=== PATIENT | female | born 2000 | race African-American/Black ===

== ENCOUNTER 2024-10-07 14:19 | Emergency (ER) | payer OTHER ==
[~2024-10-07] VITALS: Ht 167.6 cm; Wt 86.4 kg
[2024-10-07 14:20] VITALS: TEMP 98.4
[2024-10-07] MEDS ORDERED: EPIN0.3P3 IM (14:52)
[2024-10-07] MEDS ORDERED: PRED-554 PO (14:52)
[2024-10-07] MEDS ORDERED: DIPH50CA37 PO (14:52)
[2024-10-07] MEDS: PredniSONE 20 MG TABLET PO ONE (15:00)
[2024-10-07] MEDS: DiphenhydrAMINE HCL 25 MG CAPSULE PO ONE (15:00)
[2024-10-07] MEDS ORDERED: TRIA15CR49 TP (15:07)
[2024-10-07] MEDS: TRIAMCINOLONE 0.1% 15 GM CREAM TP ONE (15:18)
[2024-10-07 15:21] VITALS: BP 112/71; PULSE 75; RESP 18; O2SAT 99
== END 2024-10-07 15:22 | disposition home or self-care (01) ==
LOC: EMS 14:25
DX: T63.441A Toxic effect of venom of bees, accidental (unintentional), initial encounter (principal); M79.675 Pain in left toe(s); Y92.89 Other specified places as the place of occurrence of the external cause
CPT/HCPCS: 99284; J7512